=== PATIENT | male | born 1945 | race Caucasian/White ===

== ENCOUNTER → 2016-06-19 | Outpatient (CLI) | payer MEDICARE, OTHER ==
[~2016-06-19] MED LIST: ACCUNEB DP0.63 MG/3 IH; ALDACTONE DPS25 MG PO; ASPIR 8181 MG PO; ASPIRIN EC81 MG PO; BACITRACIN15 G1 TP; BACTRIM DS TAB1 EACH PO; BALANCE B-1001 EACH PO; C-PAP IH; CIPRO DPS500 MG PO; COLACE-DPS100 MG PO; DAILY MULTIPLE1 EAC1 PO; DELTASONE DPS10 MG PO; DUONEB DPS3 ML IH; FEOSOL-DPS325 MG PO; FLOMAX DPS0.4 MG PO; FLOMAX0.4 MG PO; FOLVITE-DPS1 MG PO; FUROSEMIDE80 MG PO; HABITROL DPS21 MG TD; HYDROCODONE 5MG/5 MG PO; IBUPROFEN400 MG PO; KEPPRA DPS500 MG PO; KEPPRA1000 MG PO; KLOR-CON M2020 ME1 PO; LASIX DPS80 MG PO; LASIX80 MG PO; LEVAQUIN DPS500 MG PO; LIPITOR DPS20 MG PO; LIPITOR20 MG PO; LISINOPRIL20 MG PO; LOPRESSOR DPS50 MG PO; LOTRISONE CREAM45 GM TP; MAALOX DPS30 ML PO; MAG-OX400 MG PO; METOPROLOL SUCC50 MG PO; METOPROLOL TART25 MG PO; MIRALAX PACKET17 GM PO; NORVASC5 MG PO; OCUVITE SOFTGE1 EACH PO; PEPCID DPS20 MG PO; PREDNISONE PO; PRILOSEC20 MG PO; PROAIR IH; PROAIR RESPICL90 MCG IH; PROVENTIL HFA6.7 GM IH; SENOKOT DPS8.6 MG PO; SENOKOT S1 TAB PO; SERTRALINE HCL100 MG PO; STIOLTO RESPIMAT4 GM IH; SURFAK DPS240 MG PO; SYMBICORT160 MCG/6; SYMBICORT160 MCG/6 IH; TAB A VITE1 EAC1 PO; TUDORZA PRESS400 MCG IH; TYLENOL DPS325 MG PO; TYLENOL EXTRA500 M1 PO; TYLENOL EXTRA500 MG PO; TYLENOL325 MG PO; ULTRAM DPS50 MG PO; ULTRAM50 MG PO; VENTOLIN HFA8 GM IH; VITAMIN B1100 MG PO; VITAMIN B12-FO1 EACH PO; VITAMIN D31000 UNIT PO; XARELTO20 MG PO; ZAROXOLYN2.5 MG PO; ZOLOFT DPS50 MG PO; ZONEGRAN100 MG PO; ZYLOPRIM-DPS300 MG PO; [UNRECOGNIZED DRUG - OTHER] PO
== END | disposition home or self-care (01) ==
LOC: RAD.S 11:45
DX: J90 Pleural effusion, not elsewhere classified (principal); I51.7 Cardiomegaly; J98.11 Atelectasis

== ENCOUNTER → 2016-08-23 | Outpatient (CLI) | payer MEDICARE, OTHER | END | disposition home or self-care (01) | LOC: PTH.S 17:00 | DX: D64.9 Anemia, unspecified (principal) ==

== ENCOUNTER 2016-09-02 09:00 | Day surgery (SDC) | payer MEDICARE, OTHER ==
[~2016-09-02 09:00] MED LIST changes: -ASPIRIN EC81 MG PO; -BALANCE B-1001 EACH PO; -COLACE-DPS100 MG PO; -FEOSOL-DPS325 MG PO; -LEVAQUIN DPS500 MG PO; -LIPITOR DPS20 MG PO; -MAALOX DPS30 ML PO; -METOPROLOL TART25 MG PO; -SERTRALINE HCL100 MG PO; -STIOLTO RESPIMAT4 GM IH; -TYLENOL EXTRA500 MG PO; -VITAMIN D31000 UNIT PO; -ZONEGRAN100 MG PO; -ZYLOPRIM-DPS300 MG PO; -[UNRECOGNIZED DRUG - OTHER] PO
[2016-12-13] MEDS ORDERED: FLOMAX DPS0.4 MG PO (15:11)
[2016-12-13] MEDS ORDERED: ZONEGRAN100 MG PO (15:11)
[2016-12-13] MEDS ORDERED: LEVAQUIN DPS500 MG PO (15:12)
[2016-12-13] MEDS ORDERED: LASIX DPS80 MG PO (15:12)
[2016-12-13] MEDS ORDERED: PROVENTIL HFA6.7 GM IH (15:12)
[2016-12-13] MEDS ORDERED: VITAMIN D31000 UNIT PO (15:13)
[2016-12-13] MEDS ORDERED: METOPROLOL TART25 MG PO (15:13)
[2016-12-13] MEDS ORDERED: FOLVITE-DPS1 MG PO (15:13)
[2016-12-13] MEDS ORDERED: XARELTO20 MG PO (15:14)
[2016-12-13] MEDS ORDERED: MAG-OX400 MG PO (15:14)
[2016-12-13] MEDS ORDERED: SERTRALINE HCL100 MG PO (15:14)
[2016-12-13] MEDS ORDERED: LIPITOR DPS20 MG PO (15:14)
[2016-12-13] MEDS ORDERED: KLOR-CON M2020 ME1 PO (15:14)
[2016-12-13] MEDS ORDERED: ZYLOPRIM-DPS300 MG PO (15:15)
[2016-12-13] MEDS ORDERED: ASPIRIN EC81 MG PO (15:15)
[2016-12-13] MEDS ORDERED: ZAROXOLYN2.5 MG PO (15:15)
[2016-12-13] MEDS ORDERED: PEPCID DPS20 MG PO (15:16)
[2016-12-13] MEDS ORDERED: BALANCE B-1001 EACH PO (15:16)
[2016-12-13] MEDS ORDERED: DUONEB DPS3 ML IH ×2 (15:17→15:18)
[2016-12-13] MEDS ORDERED: [UNRECOGNIZED DRUG - OTHER] PO (15:17)
[2016-12-13] MEDS ORDERED: TYLENOL EXTRA500 MG PO (15:17)
[2016-12-13] MEDS ORDERED: COLACE-DPS100 MG PO (15:18)
[2016-12-13] MEDS ORDERED: MAALOX DPS30 ML PO (15:18)
[2016-12-13] MEDS ORDERED: MIRALAX PACKET17 GM PO (15:18)
[2016-12-13] MEDS ORDERED: STIOLTO RESPIMAT4 GM IH (15:18)
[2016-12-13] MEDS ORDERED: DELTASONE DPS10 MG PO (15:19)
[2016-12-13] MEDS ORDERED: TYLENOL DPS325 MG PO (15:19)
[2016-12-13] MEDS ORDERED: FEOSOL-DPS325 MG PO (15:19)
== END 2016-09-02 13:13 | disposition home or self-care (01) ==
DX: D12.6 Benign neoplasm of colon, unspecified (principal); K63.5 Polyp of colon; K29.70 Gastritis, unspecified, without bleeding; J44.9 Chronic obstructive pulmonary disease, unspecified; G47.30 Sleep apnea, unspecified; D50.9 Iron deficiency anemia, unspecified; I10 Essential (primary) hypertension; E78.5 Hyperlipidemia, unspecified; E66.9 Obesity, unspecified; Z90.49 Acquired absence of other specified parts of digestive tract; Z99.89 Dependence on other enabling machines and devices; Z96.659 Presence of unspecified artificial knee joint; Z79.899 Other long term (current) drug therapy

== ENCOUNTER → 2016-09-19 | Outpatient (CLI) | payer MEDICARE, OTHER ==
[~2016-09-19] MED LIST changes: +ASPIRIN EC81 MG PO; +BALANCE B-1001 EACH PO; +COLACE-DPS100 MG PO; +FEOSOL-DPS325 MG PO; +LEVAQUIN DPS500 MG PO; +LIPITOR DPS20 MG PO; +MAALOX DPS30 ML PO; +METOPROLOL TART25 MG PO; +SERTRALINE HCL100 MG PO; +STIOLTO RESPIMAT4 GM IH; +TYLENOL EXTRA500 MG PO; +VITAMIN D31000 UNIT PO; +ZONEGRAN100 MG PO; +ZYLOPRIM-DPS300 MG PO; +[UNRECOGNIZED DRUG - OTHER] PO
== END | disposition home or self-care (01) ==
LOC: THER.SSS 14:05
DX: D50.9 Iron deficiency anemia, unspecified (principal)

== ENCOUNTER → 2016-10-07 | Outpatient (CLI) | payer MEDICARE, OTHER | END | disposition home or self-care (01) | LOC: RAD.S 08:30 | DX: K70.30 Alcoholic cirrhosis of liver without ascites (principal); R16.0 Hepatomegaly, not elsewhere classified ==